=== PATIENT | female | born 1995 | race Two or more races ===

== ENCOUNTER 2024-01-24 13:05 | Emergency (ER) | payer MEDICAID, OTHER ==
[~2024-01-24] VITALS: Ht 170.2 cm; Wt 63.6 kg
[2024-01-24 14:45] VITALS: TEMP 98
[2024-01-24 17:40] VITALS: BP 88/55; PULSE 59; RESP 17; O2SAT 100
== END 2024-01-24 17:40 | disposition home or self-care (01) ==
LOC: EDBD 13:05 → ER 13:05
DX: S00.83XA Contusion of other part of head, initial encounter (principal); R22.0 Localized swelling, mass and lump, head; E11.9 Type 2 diabetes mellitus without complications; W01.0XXA Fall on same level from slipping, tripping and stumbling without subsequent striking against object, initial encounter; Y93.89 Activity, other specified; Y92.89 Other specified places as the place of occurrence of the external cause; Y99.8 Other external cause status
CPT/HCPCS: 70450; 70486